=== PATIENT | male | born 1980 | race Two or more races ===

== ENCOUNTER 2024-09-29 07:47 | Day surgery (SDC) | payer BC ==
[~2024-09-29 07:47] MED LIST: Albuterol 0.083% 2.5 MG/3 ML Neb Soln NEB PRN; HYDROmorphone 1 MG/ML Syringe IVPUSH PRN; Metoclopramide 10 MG/2 ML SDV IVPUSH PRN; Morphine 2 MG/ML SYRINGE IVPUSH PRN; Naloxone 0.4 MG/ML SDV IVPUSH PRN; Ondansetron 4 MG/2 ML SDV IVPUSH PRN; Phenylephrine HCl In 0.9% NaCl 1 MG/10 ML Syringe IVPUSH PRN; fentaNYL 50 MCG/ML SDV IVPUSH PRN
[2024-09-29] MEDS: Lactated Ringers 1,000 ML IV SCH (08:45)
[2024-09-29] MEDS ORDERED: Lidocaine 1% 20 ML MDV ONE (08:48)
[2024-09-29] MEDS ORDERED: Bupivacaine 0.5% 30 ML SDV ONE (08:48)
[2024-09-29] MEDS ORDERED: Propofol 200 MG/20 ML SDV ONE (09:10)
[2024-09-29] MEDS ORDERED: fentaNYL 250 MCG/5 ML SDV ONE (09:10)
[2024-09-29] MEDS ORDERED: ceFAZolin 2 GM Vial ONE (09:58)
[2024-09-29] MEDS ORDERED: Ondansetron 4 MG/2 ML SDV ONE (10:12)
[2024-09-29] MEDS ORDERED: Dexamethasone 4 MG/ML 5 ML MDV ONE (10:12)
== END 2024-09-29 12:22 | disposition home or self-care (01) ==
LOC: MW.SDS 07:47 → EEVIPCON 10:00 → MW.SDS 12:22
PROVIDERS: ATTEND Surgery
DX: L72.0 Epidermal cyst (principal); L72.3 Sebaceous cyst; I10 Essential (primary) hypertension; E78.00 Pure hypercholesterolemia, unspecified; E11.9 Type 2 diabetes mellitus without complications; Z79.84 Long term (current) use of oral hypoglycemic drugs; Z79.899 Other long term (current) drug therapy
CPT/HCPCS: 00300; J0665; J0690; J1100; J2405; J2704; J3010; J3490; J7120

== ENCOUNTER 2024-10-01 15:33 | Emergency (ER) | payer BC | END 2024-10-01 15:59 | disposition left against medical advice (07) | LOC: MW.ED 15:33 | DX: Z48.01 Encounter for change or removal of surgical wound dressing (principal) | CPT/HCPCS: 99282 ==